=== PATIENT | female | born 1960 | race Caucasian/White ===

== ENCOUNTER 2016-08-05 07:46 | Outpatient (CLI) | payer MEDICARE ==
[2016-08-05 12:57] LABS: BASOPHILS % (AUTO) 0.8 %; EOSINOPHILS # (AUTO) 0.2 10^3/uL (0.0-0.7); EOSINOPHILS % (AUTO) 3.2 %; HCT - HEMATOCRIT 38.8 % (37.0-47.0); HGB - HEMOGLOBIN 13.1 g/dL (12.0-16.0); LYMPHOCYTES # (AUTO) 2.2 10^3/uL (1.5-3.5); LYMPHOCYTES % (AUTO) 38.6 %; MEAN CORPUSCULAR HEMOGLOBIN 31.6 pg (27.0-31.0); MEAN CORPUSCULAR HGB CONC 33.8 g/dL (32.0-36.0); MEAN CORPUSCULAR VOLUME 93.5 fL (81.0-99.0); MEAN PLATELET VOLUME 9.1 fL (7.9-10.8); MONOCYTES # (AUTO) 0.3 10^3/uL (0.0-1.0); MONOCYTES % (AUTO) 6.1 %; NEUTROPHILS # (AUTO) 2.9 10^3/uL (1.5-6.6); NEUTROPHILS % (AUTO) 51.3 %; NUCLEATED RED BLOOD CELLS AUTO 0.1 /100WBC; RED BLOOD COUNT 4.14 10^6/uL (4.20-5.40); RED CELL DISTRIBUTION WIDTH 13.4 % (12.0-15.0); WHITE BLOOD COUNT 5.6 x10^3/uL (4.8-10.8)
[2016-08-05 13:20] LABS: HEMOGLOBIN A1C 0.48 g/dL
[2016-08-05 13:31] LABS: ALBUMIN/GLOBULIN RATIO 1.5 (1.0-2.2); BILIRUBIN,TOTAL 0.5 mg/dL (0.2-1.0); BUN - BLOOD UREA NITROGEN 14 mg/dL (6-20); CALCIUM 9.4 mg/dL (8.5-10.3); CARBON DIOXIDE - CO2 26 mmol/L (21-32); CHLORIDE 106 mmol/L (101-111); CHOL/HDL RATIO 2.9 (<4.4); CHOLESTEROL 189 mg/dL; CREATININE 0.5 mg/dL (0.4-1.0); GFR - MDRD 129 (>89); GLUCOSE 104 mg/dL (70-100); HDL CHOLESTEROL 65 mg/dL; IRON 119 ug/dL (28-170); LDL/HDL RATIO 1.7 (<4.4); POTASSIUM 3.8 mmol/L (3.5-5.0); SODIUM 139 mmol/L (135-145); TOTAL IRON BINDING CAPACITY 328 ug/dL (250-450); TOTAL PROTEIN 6.9 g/dL (6.7-8.2); TRANSFERRIN 234 mg/dL (192-382); TRIGLYCERIDES 71 mg/dL; VLDL CHOLESTEROL 14 mg/dL
[2016-08-05 13:50] LABS: PLATELET MORPHOLOGY NORMAL APPEARANCE (NORMAL)
[2016-08-05 13:58] LABS: FERRITIN 78.5 ng/mL (11.0-306.8)
[2016-08-05 14:02] LABS: FOLATE 16.71 ng/mL (5.90 - >24.8)
[2016-08-05 14:10] LABS: THYROID STIMULATING HORMONE 1.54 uIU/mL (0.34-5.60)
[2016-08-07 14:55] LABS: TEST RESULT REPORT (())
[2016-08-07 18:48] LABS: TEST RESULT REPORT (())
[2016-08-08 12:33] LABS: VITAMIN A (RETINOL) 54 mcg/dL (38-98)
== END 2016-08-05 23:59 ==
LOC: LAB.N 07:46
PROVIDERS: ATTEND Family Medicine
DX: M54.9 Dorsalgia, unspecified (principal); E66.3 Overweight
CPT/HCPCS: 36415; 80053; 80061; 81599; 82306; 82607; 82728; 82746; 83036; 83525; 83540; 84425; 84443; 84466; 84590; 84630; 84681; 85025

== ENCOUNTER 2018-04-14 12:00 | Outpatient (CLI) | payer MEDICARE ==
--- NOTE | 2018-04-14 14:20 | CT Report ---
Reason: METASTATIC BREAST CA Procedure Date: 04/14/2018 Accession Number: [id number] / [id number] Procedure: CT - CHEST WO CPT Code: FULL RESULT: EXAM: CT CHEST EXAM DATE: 04/14/2018 12:20 PM. CLINICAL HISTORY: Metastatic breast CA. COMPARISONS: Chest with contrast 05/13/2017 9:49 AM. TECHNIQUE: Routine helical CT imaging was performed through the chest. IV contrast: None. Reconstructions: Coronal and sagittal. In accordance with CT protocol optimization, one or more of the following dose reduction techniques were utilized for this exam: automated exposure control, adjustment of mA and/or KV based on patient size, or use of iterative reconstructive technique. FINDINGS: Lungs/Pleura: Right pleural-based nodules are again seen and similar in distribution and stable to decreased in size. For example, laterally on image 17 the pleural-based nodularity measures 2.9 x 1.0 cm thickness compared to a previous 2.9 x 1.2 cm thickness. There are no definite new pleural-based nodularities and there is no definite interval increase in size of the pleural-based nodules. A right major fissure nodule now measures 2.4 x 1.4 cm on image 31, not enlarged. The previously described as a dominant and more medial lying major fissure nodule now measures 3.0 x 1.3 cm, decreased in size. The following tiny pulmonary nodules are identified: 2 mm nodule left upper lobe image 19 series 4. 2 mm nodule left upper lobe image 26. 3 mm subpleural right upper lobe nodule image 37. 4 mm fissural nodule on image 37. Retrospectively, these are all stable. No pleural effusion or pneumothorax. Mediastinum: Redemonstration of a epicardial node, 0.8 cm on image 46. A few prominent lymph nodes in the mediastinum do not meet size criteria. Bones: Unremarkable. Visualized Abdomen: Stable appearance of the 1.3 cm hepatic hypodensity. Other: None. IMPRESSION: Stable distribution of metastatic burden to the chest, pleural space predominant with mild interval decrease in size of previously followed index lesions. RADIA
== END 2018-04-14 12:01 | disposition home or self-care (01) ==
LOC: DI 12:00
PROVIDERS: ATTEND Internal Medicine Hematology & Oncology
DX: C50.919 Malignant neoplasm of unspecified site of unspecified female breast (principal); C78.2 Secondary malignant neoplasm of pleura
CPT/HCPCS: 71250

== ENCOUNTER 2018-09-23 13:12 | Outpatient (CLI) | payer MEDICARE ==
[2018-09-23] MEDS ORDERED: IOVERSOL 320 100 ML VIAL IVP ONE ×3 (13:29→13:42)
--- NOTE | 2018-09-26 00:05 | CT Report ---
Reason: METASTATIC BREAST CA Procedure Date: 09/23/2018 Accession Number: [id number] / [id number] Procedure: CT - CHEST W CPT Code: FULL RESULT: EXAM: CT CHEST EXAM DATE: 09/23/2018 01:45 PM. CLINICAL HISTORY: METASTATIC BREAST CA. COMPARISONS: CHEST W/O 04/14/2018 12:15 PM. TECHNIQUE: Routine helical CT imaging was performed through the chest. IV contrast: 80 cc Optiray 320. Reconstructions: Coronal and sagittal. In accordance with CT protocol optimization, one or more of the following dose reduction techniques were utilized for this exam: automated exposure control, adjustment of mA and/or KV based on patient size, or use of iterative reconstructive technique. FINDINGS: Lungs/Pleura: There is a right pleural densities which are relatively stable. Index examples include 2.7 x 0.9 cm image 16 series 3 and 2.0 x 0.9 cm image 36. No new pleural densities are seen. There is a stable right anterior chest juxtafissural density measuring 2.2 x 1.2 cm (image 31 series 4). Stable juxtafissural inferomedial density measuring 3.1 x 1.2 cm open (image 38 series 4). The left lung demonstrates no suspicious nodules. There is no evidence of acute consolidation or effusion. No acute central airway abnormalities. There is no pneumothorax. Mediastinum: There are no enlarged axillary or supraclavicular lymph nodes. Stable borderline enlarged subcarinal lymph node (image 30 series 3). There is stable paraesophageal soft tissue density at this level which may represent an additional mildly enlarged lymph node. Heart size is within normal limits. Aortic contour is normal. Bones: Unremarkable. Visualized Abdomen: The visualized portions of the upper abdominal organs demonstrate no acute abnormalities. There is cholelithiasis. There is moderate volume of stool within visualized colon. Other: None. IMPRESSION: 1. Stable right pleural and fissural densities. 2. No acute pulmonary CT process. 3. Stable borderline enlarged subcarinal lymph nodes. 4. Heart size is within normal limits. 5. There is cholelithiasis. RADIA
== END 2018-09-23 13:13 | disposition home or self-care (01) ==
LOC: DI 13:12
PROVIDERS: ATTEND Internal Medicine Hematology & Oncology
DX: C50.919 Malignant neoplasm of unspecified site of unspecified female breast (principal); R91.8 Other nonspecific abnormal finding of lung field; K80.20 Calculus of gallbladder without cholecystitis without obstruction
CPT/HCPCS: 71260; Q9967

== ENCOUNTER 2019-03-15 12:54 | Outpatient (CLI) | payer MEDICARE ==
[2019-03-15] MEDS ORDERED: IOVERSOL 320 100 ML VIAL IVP ONE (15:01)
--- NOTE | 2019-03-16 14:39 | CT Report ---
Reason: BREAST CA Procedure Date: 03/15/2019 Accession Number: [id number] / [id number] Procedure: CT - CHEST W CPT Code: Final Report FULL RESULT: EXAM: CT CHEST EXAM DATE: 03/15/2019 02:38 PM. CLINICAL HISTORY: Breast CA. COMPARISONS: CHEST W/ 09/23/2018 1:40 PM ABDOMEN/PELVIS W/ 02/11/2017 9:31 AM CHEST W/O 04/14/2018 12:15 PM. TECHNIQUE: Routine helical CT imaging was performed through the chest. IV contrast: 80 mL Optiray 320. Reconstructions: Coronal and sagittal. In accordance with CT protocol optimization, one or more of the following dose reduction techniques were utilized for this exam: automated exposure control, adjustment of mA and/or KV based on patient size, or use of iterative reconstructive technique. FINDINGS: Lungs/Pleura: There has been interval progression of metastatic disease in the right pleural cavity. In the right posterior superior thorax as seen sagittally on image 143 series 8 a mass now measures 2.7 x 2.1 cm, previously 2.3 x 1.6 cm when measured in similar fashion. Similarly, prior index lesion medially along the fissure on image 188 series 4 now measures 3.5 x 1.8 cm (previously 3.2 x 1.8 cm when remeasured in similar fashion). Another index mass extending along the fissure near the right middle lobe on image 156 is potentially unchanged with appearance most suggestive of scarring and atelectasis potentially with a mass component as reviewed sagittally (image 130 series 8). Remaining pleural lesions appear to have enlarged. No convincing pleural metastases in the left thorax. No pleural effusion or pneumothorax. Mediastinum: There is right hilar adenopathy, 1.6 cm on image 44 series 6. Soft tissue mass in the subcarinal region is potentially pleural-based extension, see image 46 series 6. Paraesophageal mass measures up to 2.7 cm seen on coronal image 75 series 7 and axial image 143 series 4, size comparison limited by loss of surrounding fat planes but clearly enlarged in the interval. Bones: No convincing aggressive osseous lesions. Visualized Abdomen: 1.6 cm hypodense left hepatic lobe lesion, not characterized. Previously 1.4 cm. While this difference can be seen with differences in contrast phase, the same hypodensity measured 1 cm in 2017. Other: None. IMPRESSION: Progression of disease in the right thorax. Apparent continued interval enlargement of the indeterminate hypodense lesion in the left lobe of the liver. These differences can be due to contrast phase. If definitive characterization would change management analyst, consider biopsy. RADIA
== END 2019-03-15 12:55 | disposition home or self-care (01) ==
LOC: LAB 12:54 → DI 12:55
PROVIDERS: ATTEND Internal Medicine Hematology & Oncology
DX: C78.2 Secondary malignant neoplasm of pleura (principal); C50.919 Malignant neoplasm of unspecified site of unspecified female breast
CPT/HCPCS: 71260; Q9967; 80053; 85027; 86300

== ENCOUNTER 2020-12-12 10:25 | Outpatient (CLI) | payer MEDICARE ==
[2020-12-12] MEDS ORDERED: GADOBUTROL 7.5 MMOL/7.5 ML VIAL ONE (10:35)
--- NOTE | 2020-12-12 15:08 | MRI Report ---
PROCEDURE: Cervical Spine W/WO INDICATIONS: METASTATIC BREST CA, CHRONIC NECK PAIN CONTRAST: IV CONTRAST: Gadavist ml: 7.1 TECHNIQUE: Noncontrast sagittal T1 spin echo and T2 fast spin echo, sagittal STIR, sagittal PD fast spin echo, f oraminal oblique sagittal T2 fast spin echo, axial gradient echo or T2 fast spin echo through the cer vical spine. After the administration of contrast, sagittal and axial T1 spin echo with fat saturati on through the cervical spine. COMPARISON: None. FINDINGS: Image quality: Excellent. Alignment and curvature: There is loss of normal cervical lordosis. Mild grade 1 retrolisthesis of C 5 on C6. Marrow: Marrow demonstrates normal overall signal. Mild reactive signal within the endplates adjace nt to the cervical and upper thoracic intervertebral discs. Spinal cord: Visualized spinal cord is normal in size, without white matter lesions. No suspicious intramedullary enhancement. No cerebellar tonsillar herniation. Paraspinous soft tissues: No paravertebral masses or suspicious enhancement. C2-C3: Congenital canal stenosis. Moderate disc desiccation. Mild disc height loss and diffuse disc bulge. Mild facet and uncovertebral hypertrophy bilaterally. Mild canal stenosis. Mild bilateral fora barrera stenosis. C3-C4: Congenital canal stenosis. Moderate disc height loss and desiccation. Mild diffuse disc bulg e with superimposed broad-based protrusion. Mild facet and uncovertebral hypertrophy. Mild canal sten osis. Moderate bilateral foraminal stenosis. C4-C5: Congenital canal stenosis. Mild disc height loss and desiccation. Mild diffuse disc bulge. Mi ld facet and uncovertebral hypertrophy bilaterally. Mild canal stenosis. Mild bilateral foraminal iqra nosis. C5-C6: Congenital canal stenosis. Moderate disc height loss and desiccation. Mild diffuse disc bulge . Mild facet and uncovertebral hypertrophy bilaterally. Moderate to severe canal stenosis. Minimal co rd flattening. Mild to moderate bilateral foraminal stenosis. C6-C7: Congenital canal stenosis. Moderate disc height loss and desiccation. Mild diffuse disc bulge . Mild facet and uncovertebral hypertrophy. Moderate canal stenosis. Mild bilateral foraminal stenosi s. C7-T1: Congenital canal stenosis. Moderate disc desiccation. Mild disc height loss and diffuse disc bulge. Mild facet and uncovertebral hypertrophy bilaterally. Mild canal stenosis. Mild bilateral fora barrera stenosis. IMPRESSION: 1. Diffuse congenital canal stenosis with superimposed disc and facet disease, as well as uncovertebr al hypertrophy. 2. Multilevel canal stenoses, worst at C5-C6, where there is minimal cord flattening. 3. Multilevel foraminal stenoses, worst at C3-C4 where there are moderate foraminal stenoses. Reviewed by: Kristen Vasquez MD on 12/12/2020 3:06 PM PDT Approved by: Kristen Vasquez MD on 12/12/2020 3:06 PM PDT Station ID: [id number]
[2020-12-12] MEDS: GADOBUTROL 7.5 MMOL/7.5 ML VIAL IVP ONE (17:11)
== END 2020-12-12 10:26 | disposition home or self-care (01) ==
LOC: DI 10:25
PROVIDERS: ATTEND Family Medicine
DX: M54.2 Cervicalgia (principal); G89.29 Other chronic pain; M48.02 Spinal stenosis, cervical region; C50.919 Malignant neoplasm of unspecified site of unspecified female breast
CPT/HCPCS: 72156; A9585

== ENCOUNTER 2020-12-20 09:01 | Outpatient (CLI) | payer MEDICARE ==
--- NOTE | 2020-12-20 15:11 | Nuclear Medicine Report ---
PROCEDURE: Bone Whole Body INDICATIONS: METASTATIC BREAST CA RADIOPHARMACEUTICAL: 26.8 mCi Tc-99m MDP IV. TECHNIQUE: Delayed whole-body scintigrams were obtained approximately 3-4 hours after intravenous injection of r adiotracer. Anterior and posterior views were acquired from vertex to feet. Additional left and rig ht oblique views of the skull and cervical spine were obtained. COMPARISON: Bone scan report, 05/19/2012. CT chest with contrast, 09/09/2020. FINDINGS: There is intense abnormal uptake in the distal left clavicle consistent with osseous metas tasis. No suspicious lesions are identified in skull, sternum, scapulae, ribs, spine, bony pelvis, an d shafts of the long bones. Increased periarticular activity is noted in right shoulder, wrists bilat erally, hips bilaterally, ankles and feet bilaterally, consistent with degenerative/arthritic changes . IMPRESSION: Intense abnormal uptake in the distal left clavicle consistent with osseous metastasis. Reviewed by: Hamlet Ferraro MD on 12/20/2020 3:09 PM PDT Approved by: Hamlet Ferraro MD on 12/20/2020 3:09 PM PDT Station ID: [id number]
--- NOTE | 2020-12-20 18:26 | XRAY Report ---
PROCEDURE: Cervical Spine 2 View INDICATIONS: NECK PAIN,METASTATIC BREAST CA TECHNIQUE: 3 views of the cervical spine were acquired. COMPARISON: MRI cervical spine 12/12/2020. FINDINGS: Bones: No fractures or dislocations to the T1 level. The lateral masses of C1 are not well seen on the odontoid view. There is straightening of the cervical lordosis. Minimal retrolisthesis demonstra kate at C5-C6. There is degenerative disc disease in the lower cervical spine including moderate degen eration at C5-C6 and C6-C7 with mild endplate sclerosis and osteophytosis. Mild facet arthropathy als o demonstrated in the lower cervical spine. No suspicious bony lesions. Soft tissues: No prevertebral soft tissue swelling. IMPRESSION: 1. No suspicious bony lesions identified. 2. Straightening of the cervical lordosis with minimal retrolisthesis redemonstrated at C5-C6. 3. Moderate degenerative disc disease at C5-C6 and C6-C7. Reviewed by: Ilan Snow MD on 12/20/2020 6:24 PM PDT Approved by: Ilan Snow MD on 12/20/2020 6:24 PM PDT Station ID: [id number]
== END 2020-12-20 09:02 | disposition home or self-care (01) ==
LOC: DI 09:01
PROVIDERS: ATTEND Family Medicine
DX: C50.919 Malignant neoplasm of unspecified site of unspecified female breast (principal); R93.6 Abnormal findings on diagnostic imaging of limbs; M43.12 Spondylolisthesis, cervical region; M50.322 Other cervical disc degeneration at C5-C6 level
CPT/HCPCS: 78306

== ENCOUNTER 2021-01-23 13:43 | Outpatient (CLI) | payer MEDICARE ==
[2021-01-23] MEDS ORDERED: IOTHALAMATE MEGLUMINE 50 ML VIAL ONE (13:59)
[2021-01-23] MEDS ORDERED: IOPAMIDOL-300 100 ML VIAL ONE (13:59)
[2021-01-23] MEDS: IOPAMIDOL-300 100 ML VIAL IVP ONE (18:25)
[2021-01-23] MEDS: IOVERSOL 320 50 ML VIAL PO ONE (18:26)
--- NOTE | 2021-01-24 09:19 | CT Report ---
PROCEDURE: Abdomen/Pelvis W INDICATIONS: LUNG CA CONTRAST: IV CONTRAST: Isovue 300 ml: 100 PO CONTRAST: Optiray 320 ml50 TECHNIQUE: After the administration of oral and intravenous contrast, 5 mm thick sections acquired from the diap hragms to the symphysis. 5 mm thick coronal and sagittal reformats were acquired. For radiation dos e reduction, the following was used: automated exposure control, adjustment of mA and/or kV accordin g to patient size. COMPARISON: CT abdomen and pelvis dated 02/11/2017, CT chest dated 09/09/2020, CT chest from today FINDINGS: Image quality: Excellent. ABDOMEN: Lung bases: Lobulated inferior right pleural-based masses. Please refer to the CT chest report regard ing current chest findings. On image 7/3, a pleural-based mass subjacent to T11 vertebral body measur es 1.8 cm in length. On image 5 there is a 1.4 cm pleural-based mass subjacent to the inferior vena c carrol., Heart size is normal. Solid organs: Liver and spleen are normal in size and enhancement. Stable left lobe liver cyst. Gall bladder contains numerous stones and has prominent wall thickening and possible wall edema. The appea mauro is similar to the prior study from 2017. Findings are consistent with chronic cholecystitis. B iliary system is non dilated. Pancreas enhances normally. There is progressive right adrenal metasta tic disease. On image 16/3, a right adrenal lesion compresses the inferior vena cava posteriorly. Thi s is significantly increased, as is seen by the degree of compression on the inferior vena cava. On i mage 20/3 is a spherical inferior right adrenal lesion which now measures 2.0 cm, and previously simp ly appeared to represent adrenal hypertrophy. Kidneys demonstrate normal size and enhancement, withou t hydronephrosis. Peritoneum and bowel: Bowel loops demonstrate normal wall thickness and caliber. No free fluid or a ir. Nodes and vessels: Stable right cardiophrenic lymph node. No retroperitoneal or mesenteric adenopathy by size criteria. Aorta and inferior vena cava are normal in size. Miscellaneous: Minimal fat-containing periumbilical hernia. PELVIS: Genitourinary: Bladder wall thickness is normal. Miscellaneous: No inguinal hernias or adenopathy. Bones: No suspicious bony lesions. No vertebral body compression fractures. IMPRESSION: 1. Inferior right pleural-based masses. Please refer to the CT chest report from the same date. 2. Progressive right adrenal metastatic disease. 3. Findings consistent with chronic cholecystitis. Reviewed by: Cooper Mendoza MD on 01/24/2021 9:17 AM PST Approved by: Cooper Mendoza MD on 01/24/2021 9:17 AM [facility] Station ID: [id number]
--- NOTE | 2021-01-24 09:41 | CT Report ---
PROCEDURE: CHEST W INDICATIONS: LUNG CA CONTRAST: IV CONTRAST: Isovue 300 ml: 100 PO CONTRAST: Optiray 320 ml50 TECHNIQUE: After the administration of intravenous contrast, 1 mm axial images were acquired from the pulmonary apices through the posterior costophrenic angles. Axial 5 mm soft tissue kernel reconstructions were performed as well as 8 mm axial MIP and coronal and sagittal 5 mm reformations. For radiation dose reduction, the following was used: automated exposure control, adjustment of mA and/or kV according to patient size. COMPARISON: CT chest dated 09/09/2020, CT abdomen and pelvis from today FINDINGS: Image quality: Excellent. Lungs and pleura: No acute air space opacities. Extensive multilobulated right pleural thickening, consistent with right pleural metastatic disease, is stable. Stable 2 mm pulmonary nodule, left upper lobe, image 125/3, possibly a calcified granuloma. No new or increasing pulmonary nodules. No pleura l effusions or pneumothorax. Central and peripheral airways are patent and normal in caliber. Mediastinum: Heart size is normal. No pericardial effusion. No mediastinal or hilar adenopathy by size criteria. Thoracic aorta and central pulmonary arteries are normal in size. Esophagus is caleb l in caliber. No hiatal hernia. Bones and chest wall: No suspicious bony lesions. No vertebral body compression fractures. No axil vilma or supraclavicular adenopathy by size criteria. Remote right breast lumpectomy and right axilla ry node resection. The thyroid is normal in size and there are no incidental findings.. Abdomen: Progressive right adrenal metastasis. Please refer to CT body and pelvis report. There are n umerous gallstones in the gallbladder. There is chronic gallbladder wall thickening and some degree o f gallbladder wall edema. Findings are unchanged, consistent with chronic cholecystitis. Stable right cardiophrenic lymphadenopathy. Left lobe liver cyst. IMPRESSION: 1. Extensive multiloculated right pleural thickening, consistent with right pleural metastatic diseas e, remains stable. 2. Progression of right adrenal metastatic disease. Please refer to a separate report from the CT of the abdomen and pelvis from the same date. CLINICAL RECOMMENDATION STATEMENTS: In patients <35 years with an ITN detected on CT, MRI, or extrathyroidal ultrasound, the Committee re commends further evaluation with dedicated thyroid ultrasound if the nodule is "e1 cm and has no susp icious imaging features, and if the patient has normal life expectancy. In patients "e35 years with an ITN detected on CT, MRI, or extrathyroidal ultrasound, the Committee r ecommends further evaluation with dedicated thyroid ultrasound if the nodule is "e1.5 cm and has no s uspicious imaging features, and if the patient has normal life expectancy. (ACR, 2014) Reviewed by: Cooper Mendoza MD on 01/24/2021 9:40 AM PST Approved by: Cooper Mendoza MD on 01/24/2021 9:40 AM PST Station ID: [id number]
== END 2021-01-23 13:44 | disposition home or self-care (01) ==
LOC: DI 13:43
PROVIDERS: ATTEND Internal Medicine Hematology & Oncology
DX: C50.919 Malignant neoplasm of unspecified site of unspecified female breast (principal); C78.01 Secondary malignant neoplasm of right lung; C78.2 Secondary malignant neoplasm of pleura; C79.71 Secondary malignant neoplasm of right adrenal gland
CPT/HCPCS: 71260; 74177; Q9961; Q9967

== ENCOUNTER 2021-05-12 12:14 | Outpatient (CLI) | payer MEDICARE ==
[2021-05-12] MEDS ORDERED: IOVERSOL 320 100 ML VIAL IVP ONE (12:31)
[2021-05-12] MEDS ORDERED: IOVERSOL 320 50 ML VIAL ONE (12:31)
[2021-05-12] MEDS: IOVERSOL 320 50 ML VIAL PO ONE (13:38)
[2021-05-12] MEDS: IOVERSOL 320 100 ML VIAL IVP ONE (13:38)
--- NOTE | 2021-05-12 17:18 | CT Report ---
PROCEDURE: CHEST W INDICATIONS: LUNG CA CONTRAST: IV CONTRAST: Optiray 320 ml: 100 PO CONTRAST: Optiray 320 ml50 TECHNIQUE: After the administration of intravenous contrast, 1 mm axial images were acquired from the pulmonary apices through the posterior costophrenic angles. Axial 5 mm soft tissue kernel reconstructions were performed as well as 8 mm axial MIP and coronal and sagittal 5 mm reformations. For radiation dose reduction, the following was used: automated exposure control, adjustment of mA and/or kV according to patient size. COMPARISON: CT chest 01/23/2021, 09/09/2020. FINDINGS: Image quality: Excellent. Lungs and pleura: Nodular right pleural thickening is unchanged. For example at the medial right dimas g base measuring 1.1 cm in thickness, (3/242), previously 1.1 cm, and more remotely 1 cm on 09/09/2020 . No acute air space opacities. No pleural effusions or pneumothorax. Central and peripheral airway s are patent and normal in caliber. Mediastinum: Heart size is normal. No pericardial effusion. No mediastinal or hilar adenopathy by size criteria. Thoracic aorta and central pulmonary arteries are normal in size. Esophagus is caleb l in caliber. No hiatal hernia. Bones and chest wall: Heterogeneous sclerotic appearance of the distal left clavicle, unchanged. No vertebral body compression fractures. No axillary or supraclavicular adenopathy by size criteria. S mall calcified left thyroid nodule. Abdomen: Please see centrally dictated same day CT abdomen and pelvis. Right adrenal nodule. Gallston es. Liver cysts. IMPRESSION: 1. Extensive right pleural nodular thickening is unchanged. 2. Heterogeneous sclerotic appearance of the distal left clavicle is unchanged. Please see separately dictated same day CT abdomen and pelvis. Reviewed by: Jose Oates MD on 05/12/2021 5:17 PM PDT Approved by: Jose Oates MD on 05/12/2021 5:17 PM PDT Station ID: [id number]
--- NOTE | 2021-05-12 18:07 | CT Report ---
PROCEDURE: Abdomen/Pelvis W INDICATIONS: LUNG CA CONTRAST: IV CONTRAST: Optiray 320 ml: 100 PO CONTRAST: Optiray 320 ml50 TECHNIQUE: After the administration of oral and intravenous contrast, 5 mm thick sections acquired from the diap hragms to the symphysis. 5 mm thick coronal and sagittal reformats were acquired. For radiation dos e reduction, the following was used: automated exposure control, adjustment of mA and/or kV accordin g to patient size. COMPARISON: CT abdomen and pelvis 01/23/2021, 02/11/2017. FINDINGS: Image quality: Excellent. ABDOMEN: Lung bases: See separately dictated same day CT chest. Right pleural nodules. Solid organs: Liver and spleen are normal in size and enhancement. The circumscribed hypodensity in the left lobe of liver measuring 1.5 cm, (3/3), unchanged. Has the appearance of a benign cyst. Gallb ladder is distended with gallstones. Gallbladder wall appears thickened. Biliary system is non dilate d. Pancreas enhances normally. Right adrenal nodule measuring 2.3 cm, (3/12), previously 2.2 cm, and more remotely not seen in 2017. Kidneys demonstrate normal size and enhancement, without hydronephro sis. Peritoneum and bowel: Bowel loops demonstrate normal wall thickness and caliber. Diverticulosis. No free fluid or air. Nodes and vessels: No retroperitoneal or mesenteric adenopathy by size criteria. Aorta and inferior vena cava are normal in size. Miscellaneous: No ventral hernias. PELVIS: Genitourinary: Bladder is mostly decompressed. Anteverted uterus. Cyst at the left pelvic brim measu ring 2.3 cm, (3/51), previously 2.5 cm. Miscellaneous: No inguinal hernias or adenopathy. Bones: No suspicious bony lesions. No vertebral body compression fractures. IMPRESSION: 1. Right adrenal nodule measuring 2.3 cm is not significantly changed. Concern for metastatic disease . 2. Cyst of the left pelvic brim measuring 2.3 cm is slightly decreased. 3. Gallbladder is distended with gallstones and there is gallbladder wall thickening. Findings concer doroteo for chronic cholecystitis. Please see separate dictated same day CT chest. Reviewed by: Jose Oates MD on 05/12/2021 6:06 PM PDT Approved by: Jose Oates MD on 05/12/2021 6:06 PM PDT Station ID: [id number]
== END 2021-05-12 12:15 | disposition home or self-care (01) ==
LOC: DI 12:14
PROVIDERS: ATTEND Internal Medicine Hematology & Oncology
DX: C34.90 Malignant neoplasm of unspecified part of unspecified bronchus or lung (principal); E27.9 Disorder of adrenal gland, unspecified; R19.00 Intra-abdominal and pelvic swelling, mass and lump, unspecified site; K80.20 Calculus of gallbladder without cholecystitis without obstruction
CPT/HCPCS: 71260; 74177; Q9967